=== PATIENT | female | born 1985 | race Caucasian/White ===

== ENCOUNTER 2017-06-07 07:05 | Emergency (ER) | payer OTHER ==
[~2017-06-07] VITALS: Ht 172.7 cm; Wt 85.8 kg
[2017-06-07 08:50] VITALS: BP 133/82
== END 2017-06-07 08:50 | disposition home or self-care (01) ==
LOC: ED 07:05
DX: F41.1 Generalized anxiety disorder (principal); R07.89 Other chest pain; R06.02 Shortness of breath; I10 Essential (primary) hypertension; Z88.0 Allergy status to penicillin

== ENCOUNTER 2018-10-24 21:45 | Emergency (ER) | payer OTHER ==
[~2018-10-24] VITALS: Ht 175.3 cm; Wt 99.3 kg
[2018-10-24 21:51] VITALS: Ht 175.3 cm; Wt 99.3 kg
[2018-10-24 23:25] LABS: BASOPHIL % 0.9 % (0-2); PLATELET COUNT 278 x10^3mcL (130-400); RED CELL DISTRIBUTION WIDTH 13.4 % (11.5-14.5)
[2018-10-24 23:38] LABS: CALCIUM 8.5 mg/dL (8.5-10.1); CARBON DIOXIDE 28.1 mmol/L (21-32); CHLORIDE SERUM 106 mmol/L (98-107); CREATININE SERUM 0.9 mg/dL (0.6-1.0); GFR1 > 60 mL/min; GLUCOSE SERUM 89 mg/dL (74-106); POTASSIUM SERUM 3.2 mmol/L (3.5-5.1); SODIUM SERUM 143 mmol/L (136-145)
[2018-10-24 23:43] LABS: ALKALINE PHOSPHATASE 58 U/L (46-116); ALT/SGPT 20 U/L (14-59); AST/SGOT 11 U/L (15-37); BILIRUBIN TOTAL 0.3 mg/dL (0.20-1.00); TOTAL PROTEIN, SERUM 7.2 g/dL (6.4-8.2)
[2018-10-24 23:45] LABS: ALBUMIN 3.2 g/dL (3.4-5.0)
[2018-10-24 23:54] LABS: AMPHETAMINE QUAL UR NONE DETECTED (See below)
[2018-10-25 01:21] VITALS: BP 105/67
== END 2018-10-25 01:21 | disposition home or self-care (01) ==
LOC: ED 21:45
PROVIDERS: Emergency Medicine
DX: R00.2 Palpitations (principal); E87.6 Hypokalemia; R42 Dizziness and giddiness; Z88.0 Allergy status to penicillin; Z90.89 Acquired absence of other organs
CPT/HCPCS: 85378; J7030